=== PATIENT | female | born 2005 | race Two or more races ===

== ENCOUNTER 2025-01-02 00:25 | Emergency (ER) | payer OTHER ==
[~2025-01-02] VITALS: Ht 157.5 cm; Wt 68.5 kg
[2025-01-02] MEDS ORDERED: IBUprofen 400 MG TABLET PO STA (01:48)
[2025-01-02] MEDS ORDERED: IBUprofen 20 MG/ML BLIST.PACK (5ML) PO ONE (01:50)
[2025-01-02 02:04] LABS: HEMATOCRIT 40.3 % (36.0-45.00); HEMOGLOBIN 13.5 g/dL (12.0-15.00); MEAN CELL VOLUME 88.6 fL (80.00-100.00); MEAN CORPUSCULAR HEMOGLOBIN 29.7 pg (27.00-32.0); MEAN CORPUSCULAR HGB CONC 33.5 g/dl (32.0-36.0); PLATELET COUNT 283 K/uL (150-450); RED BLOOD COUNT 4.54 M/uL (4.00-6.00); RED CELL DISTRIBUTION WIDTH 13.1 % (11.5-14.5)
== END 2025-01-02 02:45 | disposition home or self-care (01) ==
LOC: EMR PED 00:28 → ER 00:28 → EMR PED 01:03
DX: R53.81 Other malaise (principal); J06.9 Acute upper respiratory infection, unspecified; Z20.822 Contact with and (suspected) exposure to COVID-19

== ENCOUNTER 2025-05-19 16:50 | Emergency (ER) | payer OTHER ==
[~2025-05-19] VITALS: Ht 160 cm; Wt 68.0 kg
[2025-05-19] MEDS ORDERED: ONDANSETRON HCL 2 MG/ML VIAL IV SCH (18:00)
[2025-05-19] MEDS ORDERED: FAMOTIDINE/PF 20 MG/2 ML VIAL IV SCH (18:00)
[2025-05-19] MEDS ORDERED: DEXTROSE 5 % AND 0.9 % NACL 1,000 ML IV SCH (18:00)
[2025-05-19] MEDS ORDERED: FAMOTIDINE/PF 20 MG/2 ML VIAL ONE (18:02)
[2025-05-19] MEDS ORDERED: ONDANSETRON HCL 2 MG/ML VIAL ONE (18:02)
[2025-05-19 18:30] LABS: BASO % 0.2 % (0.1-1.2); EOS # 0.31 (0.04-0.54); EOS % 2.3 % (0.7-7.0); LYMPH # 3.16 (1.18-3.74); LYMPH % 22.9 % (19.3-53.1); MEAN PLATELET VOLUME 10.20 fl (9.4-12.4); MONO # 1.15 (0.24-0.82); MONO % 8.4 % (4.7-12.5); NEUT # 9.06 (1.56-6.13); NEUT % 65.8 % (34.0-71.1); RED CELL DISTRIBUTION WIDTH 12.0 % (11.6-14.4)
[2025-05-19 19:09] LABS: ALT/SGPT 22.0 U/L (12-78); AST/SGOT 13.0 U/L (15-37); BILIRUBIN TOTAL 0.44 mg/dL (0.3-1.2); BUN CREA RATIO 7.0 (7.0-25.0); CREATININE SERUM 0.69 mg/dL (0.55-1.02); GFR 108.47; GLOBULINA 3.6 G/DL (2.4-3.5); GLUCOSE FASTING 79.0 mg/dL (65-100); OSMOLALITY SERUM 279.0 MOSM/KG (275-295)
[2025-05-19 19:16] LABS: COVID-19 AG NEGATIVE (NEGATIVE)
== END 2025-05-19 20:38 | disposition home or self-care (01) ==
LOC: ER 16:50 → EMR PED 16:56
PROVIDERS: Emergency Medicine Pediatric Emergency Medicine
DX: R11.2 Nausea with vomiting, unspecified (principal); E86.0 Dehydration; Z20.822 Contact with and (suspected) exposure to COVID-19

== ENCOUNTER 2025-06-11 23:36 | Emergency (ER) | payer OTHER ==
[~2025-06-11] VITALS: Ht 160 cm; Wt 65.8 kg
[2025-06-11] MEDS ORDERED: PRENATABS RX T1 EACH (23:50)
[2025-06-12 02:14] LABS: BASO % 0.2 % (0.1-1.2); EOS # 0.36 (0.04-0.54); EOS % 2.2 % (0.7-7.0); LYMPH # 3.02 (1.18-3.74); LYMPH % 18.2 % (19.3-53.1); MEAN PLATELET VOLUME 10.00 fl (9.4-12.4); MONO # 1.57 (0.24-0.82); MONO % 9.5 % (4.7-12.5); NEUT # 11.46 (1.56-6.13); NEUT % 68.9 % (34.0-71.1); RED CELL DISTRIBUTION WIDTH 12.0 % (11.6-14.4)
[2025-06-12 02:32] LABS: COVID-19 AG NEGATIVE (NEGATIVE)
[2025-06-12] MEDS ORDERED: CEFTRIAXONE SODIUM 1,000 MG VIAL IM STA (02:44)
[2025-06-12] MEDS ORDERED: CEFTRIAXONE SODIUM 1,000 MG VIAL ONE (02:45)
[2025-06-12] MEDS ORDERED: LIDOCAINE HCL/MPF 1% 5ML VIAL IJ ONE (02:46)
== END 2025-06-12 03:02 | disposition home or self-care (01) ==
LOC: ER 23:36
DX: Z34.90 Encounter for supervision of normal pregnancy, unspecified, unspecified trimester (principal); Z3A.01 Less than 8 weeks gestation of pregnancy; J06.9 Acute upper respiratory infection, unspecified; R05.9 Cough, unspecified; Z20.822 Contact with and (suspected) exposure to COVID-19
CPT/HCPCS: 36415; 96372; 99282; J0696